=== PATIENT | male | born 1955 | race Caucasian/White ===

== ENCOUNTER 2016-11-25 19:27 | Inpatient (IN) ==
[2016-11-25 19:56] LABS: MANUAL DIFF NEEDED? NO
[2016-11-25 20:00] LABS: BASO% 0.4 % (0.0-0.8); EOS# 0.09 X1000 (0.0-0.7); EOS% 1.6 % (0.0-10.0); HEMATOCRIT 37.6 % (42.0-52.0); HEMOGLOBIN 12.1 g/dL (14.0-18.0); LYMPH# 1.57 X1000 (1.2-3.4); LYMPH% 27.5 % (20.5-51.1); MCH 30.3 PG (27-31); MCHC 32.2 g/dL (33-37); MCV 94.2 FL (81-99); MONO# 0.83 X1000 (0.11-0.59); MONO% 14.5 % (1.7-9.3); MPV 9.8 FL (7.4-10.4); PLT 294 X1000 (130-400); RBC 3.99 XMIL (4.7-6.1)
[2016-11-25 20:20] LABS: ALBUMIN 4.2 g/dL (3.5-5.0); CALCIUM 8.9 mg/dL (8.8-10.2); MAGNESIUM 2.2 mg/dL (1.5-2.7); POTASSIUM 3.3 mmol/L (3.5-5.1); TOTAL BILIRUBIN 0.43 mg/dL (0.20-1.00); TOTAL PROTEIN 7.9 g/dL (6.3-8.3)
[2016-11-25 20:21] LABS: INR 1.09; PROTIME 11.5 Seconds (9.2-11.7); PTT 28.2 Seconds (22.0-36.0)
[2016-11-25 20:47] LABS: CK INDEX 1.2 (0.0-2.5); CK-MB 3.43 ng/mL (0.0-5.0)
[2016-11-25 23:02] LABS: UR AMPHETAMINES QUAL NONE DETECTED (NONE DETECT); UR BARBITUATES QUAL NONE DETECTED (NONE DETECT); UR BENZODIAZEPIN QUAL NONE DETECTED (NONE DETECT); UR CANNABINOIDS QUAL NONE DETECTED (NONE DETECT); UR COCAINE QUAL NONE DETECTED (NONE DETECT); UR METHADONE QUAL NONE DETECTED (NONE DETECT); UR OPIATES QUAL NONE DETECTED (NONE DETECT); UR OXYCODONE QUAL NONE DETECTED (NONE DETECT); UR PCP QUAL NONE DETECTED (NONE DETECT)
[2016-11-26] MEDS ORDERED: ZOFRAN IV PRN (04:04)
[2016-11-26] MEDS ORDERED: VASOTEC IV PRN (04:04)
[2016-11-26] MEDS ORDERED: TYLENOL PO PRN (04:04)
[2016-11-26] MEDS: NORVASC PO SCH ×2 (09:46→20:12)
[2016-11-26] MEDS ORDERED: APRESOLINE IV PRN (10:07)
[2016-11-26 11:02] LABS: AGAP 17; BUN 8 mg/dL (8-22); CALCIUM 8.9 mg/dL (8.8-10.2); CHLORIDE 98 mmol/L (98-107); COSMO 277; POTASSIUM 3.6 mmol/L (3.5-5.1); SODIUM 140 mmol/L (136-145); TCO2 25 mmol/L (25-35)
[2016-11-27 07:17] LABS: MANUAL DIFF NEEDED? NO
[2016-11-27 07:27] LABS: BASO% 0.5 % (0.0-0.8); EOS# 0.12 X1000 (0.0-0.7); EOS% 2.8 % (0.0-10.0); HEMATOCRIT 38.7 % (42.0-52.0); HEMOGLOBIN 12.2 g/dL (14.0-18.0); LYMPH# 1.39 X1000 (1.2-3.4); LYMPH% 32.1 % (20.5-51.1); MCH 30.2 PG (27-31); MCHC 31.5 g/dL (33-37); MCV 95.8 FL (81-99); MONO# 0.49 X1000 (0.11-0.59); MONO% 11.3 % (1.7-9.3); MPV 10.1 FL (7.4-10.4); NEUT% 53.3 % (42.2-75.2); PLT 282 X1000 (130-400); RBC 4.04 XMIL (4.7-6.1)
[2016-11-27 07:44] LABS: AGAP 13; BUN 9 mg/dL (8-22); CALCIUM 8.8 mg/dL (8.8-10.2); CHLORIDE 101 mmol/L (98-107); COSMO 281; MAGNESIUM 2.1 mg/dL (1.5-2.7); SODIUM 141 mmol/L (136-145); TCO2 27 mmol/L (25-35)
[2016-11-27] MEDS: PRINIVIL PO SCH (08:26)
[2016-11-27] MEDS: NORVASC PO SCH ×2 (08:26→20:15)
[2016-11-27] MEDS ORDERED: GOLYTELY PO ONE (17:42)
[2016-11-28] MEDS ORDERED: DIPRIVAN 1% ONE (09:27)
[2016-11-28] MEDS ORDERED: XYLOCAINE-MPF 2% ONE (09:28)
[2016-11-28] MEDS ORDERED: FENTANYL ONE (09:32)
[2016-11-28] MEDS: NORVASC PO SCH ×2 (10:45→23:02)
[2016-11-28] MEDS: PRINIVIL PO SCH (10:45)
[2016-11-28] MEDS: CENTRUM SILVER PO SCH ×2 (13:22→23:02)
[2016-11-28] MEDS: PROTONIX IV SCH (13:22)
[2016-11-28] MEDS ORDERED: 1/2 NS 1,000 ML IV SCH (18:26)
[2016-11-28] MEDS: MIRALAX PO SCH (23:37)
[2016-11-29 07:10] LABS: HEMATOCRIT 38.4 % (42.0-52.0); HEMOGLOBIN 12.1 g/dL (14.0-18.0); MCH 30.6 PG (27-31); MCHC 31.5 g/dL (33-37); MCV 97.2 FL (81-99); MPV 9.9 FL (7.4-10.4); RBC 3.95 XMIL (4.7-6.1)
[2016-11-29 07:30] LABS: AGAP 13; BUN 7 mg/dL (8-22); CALCIUM 8.9 mg/dL (8.8-10.2); CHLORIDE 104 mmol/L (98-107); COSMO 284; POTASSIUM 4.2 mmol/L (3.5-5.1); SODIUM 143 mmol/L (136-145); TCO2 26 mmol/L (25-35)
[2016-11-29 07:38] LABS: IRON SATURATION 11 %; TIBC 319 ug/dL; TOTAL IRON 34 ug/dL (53-167); UNBOUND IRON 285 ug/dL (112-346)
[2016-11-29 07:47] LABS: FERRITIN 35 ng/mL (30-400)
[2016-11-29] MEDS: MIRALAX PO SCH ×2 (08:55→23:46)
[2016-11-29] MEDS: SODIUM CHLORIDE 0.9% INJ SCH (08:55)
[2016-11-29] MEDS: CENTRUM SILVER PO SCH ×2 (08:55→23:47)
[2016-11-29] MEDS: NORVASC PO SCH ×2 (08:55→23:47)
[2016-11-29] MEDS: PROTONIX IV SCH (08:55)
[2016-11-29] MEDS: PRINIVIL PO SCH (08:55)
[2016-11-29] MEDS ORDERED: CYANOCOBALAMIN IM SCH (18:00)
[2016-11-30 07:19] LABS: HEMATOCRIT 37.8 % (42.0-52.0); MCHC 31.7 g/dL (33-37); MCV 97.7 FL (81-99); MPV 10.2 FL (7.4-10.4); RBC 3.87 XMIL (4.7-6.1)
[2016-11-30 07:39] LABS: AGAP 14; BUN 9 mg/dL (8-22); CALCIUM 9.1 mg/dL (8.8-10.2); CHLORIDE 103 mmol/L (98-107); COSMO 282; SODIUM 142 mmol/L (136-145); TCO2 25 mmol/L (25-35)
[2016-11-30 07:46] VITALS: BP 152/67
[2016-11-30] MEDS: SODIUM CHLORIDE 0.9% INJ SCH (09:29)
[2016-11-30] MEDS: CENTRUM SILVER PO SCH (09:29)
[2016-11-30] MEDS: PROTONIX IV SCH (09:29)
[2016-11-30] MEDS: PRINIVIL PO SCH (09:29)
[2016-11-30] MEDS: MIRALAX PO SCH (09:29)
[2016-11-30] MEDS: NORVASC PO SCH (09:29)
[2016-11-30] MEDS ORDERED: PNEUMOVAX 23 IM ONE (12:00)
== END 2016-11-30 12:17 | disposition home or self-care (01) ==
LOC: ED 19:27 → MERGE 11-26 03:16 → SUATTDRO 11-26 03:16 → 3N 11-26 03:16
PROVIDERS: ATTEND Internal Medicine